=== PATIENT | female | born 1985 | race Hispanic/Latino ===

== ENCOUNTER 2017-04-25 20:58 | Emergency (ER) | payer OTHER ==
[2017-04-25 21:28] VITALS: BP 130/92; PULSE 84; RESP 15; TEMP 98.3; O2SAT 99
--- NOTE | 2017-04-25 21:38 | ED PDOC ---
Lower Extremity Pain/Injury Time Seen by Provider: 04/25/17 21:03 Chief Complaint (Nursing): Lower Extremity Problem/Injury Chief Complaint (Provider): right heel laceration History Per: Patient History/Exam Limitations: no limitations Onset/Duration Of Symptoms: Days (x1) Current Symptoms Are (Timing): Still Present Additional Complaint(s): Katelyn Mchugh is a 31 year old female who presents to the emergency department for an evaluation of a right heel laceration associated with pain sustained at noon today. Patient stated she was holding a heavy door with her foot when an exposed screw cut into her heel. Denied fever or chills. She also reported that she is up-to-date on tetanus vaccinations and is currently breast feeding her baby. PMD: none provided Past Medical History Reviewed: Historical Data, Nursing Documentation, Vital Signs Vital Signs: Last Vital Signs Temp 98.3 F 04/25/17 21:24 Pulse 84 04/25/17 21:24 Resp 15 04/25/17 21:24 BP 130/92 H 04/25/17 21:24 Pulse Ox 99 04/25/17 21:24 - Medical History PMH: No Chronic Diseases - Surgical History Surgical History: - Family History Family History: States: Unknown Family Hx - Home Medications Home Medications: Ambulatory Orders Medication Instructions Recorded Cephalexin [cephalexin] 500 mg PO BID #10 cap 04/25/17 Ibuprofen [Motrin] 600 mg PO Q6 #20 tab 04/25/17 - Allergies Allergies/Adverse Reactions: Allergies Allergy/AdvReac Type Severity Reaction Status Date / Time No Known Allergies Allergy Verified 04/25/17 21:27 Review of Systems ROS Statement: Except As Marked, All Systems Reviewed And Found Negative Constitutional: Negative for: Fever, Chills Musculoskeletal: Positive for: Foot Pain (right foot laceration) Physical Exam - Reviewed Nursing Documentation Reviewed: Yes Vital Signs Reviewed: Yes - Physical Exam Appears: Positive for: Well, Non-toxic, No Acute Distress Head Exam: Positive for: ATRAUMATIC, NORMAL INSPECTION, NORMOCEPHALIC Skin: Positive for: Normal Color Extremity: Positive for: Normal ROM, Tenderness (right foot with 4cm vertical laceration). Negative for: Other (active bleeding) Neurologic/Psych: Positive for: Alert, site supervisor II-XII, Oriented - ECG O2 Sat by Pulse Oximetry: 99 (RA) Pulse Ox Interpretation: Normal Medical Decision Making Medical Decision Making: Initial Impression: Right foot laceration Initial Plan: * Wound repair Scribe Attestation: Documented by Negin Jamison, acting as a scribe for Malaika Aponte Provider Scribe Attestation: All medical record entries made by the Scribe were at my direction and personally dictated by me. I have reviewed the chart and agree that the record accurately reflects my personal performance of the history, physical exam, medical decision making, and the department course for this patient. I have also personally directed, reviewed, and agree with the discharge instructions and disposition. Disposition - Clinical Impression Clinical Impression: Laceration - Patient ED Disposition Is Patient to be Admitted: No - Disposition Referrals: FAMILY PROVIDER,NO [Non-Staff] - Disposition: Routine/Home Disposition Time: 22:07 Condition: STABLE Prescriptions: Cephalexin [cephalexin] 500 mg PO BID #10 cap Ibuprofen [Motrin] 600 mg PO Q6 #20 tab Instructions: Care For Your Stitches (ED) Forms: QVPN (Y[place]i) Laceration - Laceration Repair laceration Wound Length (In cm): 4 Description Of Wound: Linear Wound Cleansed With: Betadine Anesthesia: Lidocaine 1% Wound Examination: Irrigated With Saline Wound Closure: Suture Suture Technique And Material Used: Interrupted (4), Nylon (4-0) Wound Complexity: Simple
== END 2017-04-25 22:06 | disposition home or self-care (01) ==
LOC: H.ER 20:58
DX: S91.311A Laceration without foreign body, right foot, initial encounter (principal); W26.8XXA Contact with other sharp object(s), not elsewhere classified, initial encounter; Y92.89 Other specified places as the place of occurrence of the external cause